=== PATIENT | male | born 1980 ===

== ENCOUNTER → 2017-09-21 | Outpatient (REF) | payer OTHER ==
[2017-09-21 17:59] LABS: CARBAMAZEPINE (TEGRETOL) LEVEL 6.6 UG/ML (4.0-10.0)
== END ==
LOC: M LAB REF 17:29
PROVIDERS: ATTEND Family Medicine
DX: R56.9 Unspecified convulsions (principal); Z79.899 Other long term (current) drug therapy

== ENCOUNTER → 2017-10-24 | Outpatient (CLI) | payer OTHER ==
[2017-10-24 18:31] LABS: PHENYTOIN (DILANTIN) 11.9 UG/ML (10.0-20.0)
[2017-10-27 10:17] LABS: LAMOTRIGINE (LAMICTAL) 4.8 ug/mL (2.0-20.0)
== END ==
LOC: M WUC 14:42
DX: R56.9 Unspecified convulsions (principal)
CPT/HCPCS: 80185

== ENCOUNTER → 2018-03-23 | Outpatient (REF) | payer OTHER ==
[2018-03-23 18:05] LABS: CARBAMAZEPINE (TEGRETOL) LEVEL 10.9 UG/ML (4.0-10.0)
[2018-03-23 18:05] LABS: PHENYTOIN (DILANTIN) 11.2 UG/ML (10.0-20.0)
[2018-03-27 00:06] LABS: LAMOTRIGINE (LAMICTAL) 2.7 ug/mL (2.0-20.0)
== END ==
LOC: M LAB REF 16:36
DX: R56.9 Unspecified convulsions (principal)

== ENCOUNTER → 2018-09-26 | Outpatient (REF) | payer OTHER ==
[2018-09-26 17:16] LABS: CARBAMAZEPINE (TEGRETOL) LEVEL 7.3 UG/ML (4.0-10.0); PHENYTOIN (DILANTIN) 6.9 UG/ML (10.0-20.0)
== END ==
LOC: M LAB REF 16:38
PROVIDERS: ATTEND Family Medicine
DX: R56.9 Unspecified convulsions (principal)

== ENCOUNTER → 2019-03-24 | Outpatient (REF) | payer OTHER | LOC: M LAB REF 16:39 | PROVIDERS: ATTEND Family Medicine | DX: Z79.899 Other long term (current) drug therapy (principal); R56.9 Unspecified convulsions ==

== ENCOUNTER → 2019-09-25 | Outpatient (REF) | payer OTHER | LOC: M LAB REF 18:24 | PROVIDERS: ATTEND Family Medicine | DX: R56.9 Unspecified convulsions (principal); Z79.899 Other long term (current) drug therapy ==

== ENCOUNTER → 2020-03-15 | Outpatient (REF) | payer OTHER | LOC: M LAB REF 17:20 | PROVIDERS: ATTEND Family Medicine | DX: R56.9 Unspecified convulsions (principal) ==

== ENCOUNTER → 2020-09-26 | Outpatient (REF) | payer OTHER ==
[2020-09-26 18:00] LABS: CARBAMAZEPINE (TEGRETOL) LEVEL 5.9 UG/ML (4.0-10.0); PHENYTOIN (DILANTIN) 5.8 UG/ML (10.0-20.0)
== END ==
LOC: M LAB REF 16:24
PROVIDERS: ATTEND Family Medicine
DX: R56.9 Unspecified convulsions (principal)

== ENCOUNTER → 2020-12-26 | Outpatient (REF) | payer OTHER ==
[2020-12-26 17:13] LABS: CARBAMAZEPINE (TEGRETOL) LEVEL 5.5 UG/ML (4.0-10.0); PHENYTOIN (DILANTIN) 10.5 UG/ML (10.0-20.0)
== END ==
LOC: M LAB REF 16:07
PROVIDERS: ATTEND Family Medicine
DX: R56.9 Unspecified convulsions (principal); Z79.899 Other long term (current) drug therapy

== ENCOUNTER → 2021-10-08 | Outpatient (REF) | payer OTHER ==
[2021-10-08 17:09] LABS: CARBAMAZEPINE (TEGRETOL) LEVEL 6.8 UG/ML (4.0-10.0); PHENYTOIN (DILANTIN) 9.1 UG/ML (10.0-20.0)
== END ==
LOC: M LAB REF 16:23
PROVIDERS: ATTEND Family Medicine
DX: R56.9 Unspecified convulsions (principal); F90.9 Attention-deficit hyperactivity disorder, unspecified type; Z79.899 Other long term (current) drug therapy

== ENCOUNTER → 2022-09-30 | Outpatient (REF) | payer OTHER ==
[2022-09-30 19:07] LABS: PHENYTOIN (DILANTIN) 9.7 UG/ML (10.0-20.0)
[2022-10-02 14:08] LABS: CARBAMAZEPINE (TEGRETOL) LEVEL 7.3 ug/mL (4.0-12.0)
== END ==
LOC: M LAB REF 16:08
PROVIDERS: ATTEND Family Medicine
DX: R56.9 Unspecified convulsions (principal)

== ENCOUNTER → 2022-12-30 | Outpatient (REF) | payer OTHER | LOC: M LAB REF 16:48 | PROVIDERS: ATTEND Family Medicine | DX: R56.9 Unspecified convulsions (principal) ==

== ENCOUNTER → 2024-02-09 | Outpatient (REF) | payer OTHER | LOC: M LAB REF 13:08 | PROVIDERS: ATTEND Family Medicine | DX: R56.9 Unspecified convulsions (principal) ==